=== PATIENT | male | born 1985 | race Caucasian/White ===

== ENCOUNTER 2017-02-22 14:31 | Emergency (ER) | payer SELFPAY ==
[2017-02-22] MEDS ORDERED: Ondansetron ODT 4 MG TAB ONE (14:48)
== END 2017-02-22 14:55 | disposition home or self-care (01) ==
LOC: BURERS 14:31
DX: R11.2 Nausea with vomiting, unspecified (principal); R19.7 Diarrhea, unspecified; J45.909 Unspecified asthma, uncomplicated; F90.9 Attention-deficit hyperactivity disorder, unspecified type; F17.210 Nicotine dependence, cigarettes, uncomplicated
CPT/HCPCS: 99283; Q0162